=== PATIENT | male | born 1935 | race Caucasian/White ===

== ENCOUNTER 2016-11-06 14:25 | Outpatient (CLI) | payer MEDICARE ==
--- NOTE | 2016-11-06 15:57 | XRAY Report ---
FRONTAL PELVIS: 11/06/2016 CLINICAL INDICATION: Low back pain. FINDINGS: Frontal view of the pelvis demonstrates no evidence of fracture. Mild bilateral hip osteo arthritis is present. The visualized bowel gas pattern is unremarkable. IMPRESSION: HIP OSTEOARTHRITIS. NO EVIDENCE OF PELVIC FRACTURE. JOB #: [id number] EXT JOB #:[id number]
--- NOTE | 2016-11-06 15:58 | XRAY Report ---
THREE-VIEW LUMBAR SPINE: 11/06/2016 CLINICAL INDICATION: Back pain. COMPARISON: MRI 12/06/2007. FINDINGS: AP, lateral, coned-down views of the lumbar spine demonstrate moderate degenerative disc a nd facet disease. There is no evidence of acute fracture or subluxation. Vascular calcifications ar e seen. The bowel gas pattern appears unremarkable. IMPRESSION: MODERATE DEGENERATIVE CHANGES. JOB #: [id number] EXT JOB #:[id number]
== END 2016-11-06 14:26 | disposition home or self-care (01) ==
LOC: LAB 14:25
PROVIDERS: ATTEND Internal Medicine
DX: M51.36 Other intervertebral disc degeneration, lumbar region (principal); M47.896 Other spondylosis, lumbar region; M16.0 Bilateral primary osteoarthritis of hip
CPT/HCPCS: 72100; 72170

== ENCOUNTER 2017-02-24 09:13 | Outpatient (CLI) | payer MEDICARE ==
--- NOTE | 2017-02-24 17:04 | MRI Report ---
EXAM: MRI LUMBAR SPINE WITHOUT CONTRAST EXAM DATE: 02/24/2017 10:21 a.m. CLINICAL HISTORY: Low back pain. COMPARISON: Radiographs 11/06/2016. Prior MRI 12/06/2007. TECHNIQUE: Multiplanar, multisequence T1-weighted and fluid-sensitive sequences of the lumbar spine f rom T12 to S1 without contrast. Other: None. FINDINGS: Spinal Cord: The conus terminates at L2. At the T11-T12 level there is a 1.5 cm long segment of sligh t dilatation of the central canal of the lower spinal cord measuring approximately 1.5 mm in maximum diameter. Prominent midline vessel is seen within the cord below this level. This appearance is uncha nged in retrospect compared to sagittal images on the previous MRI from 2007. Alignment: 4-5 mm posterior subluxation of L4 on L5, unchanged. 2 mm anterior subluxation of L3 on L4 . 2 mm posterior subluxation of L1 on L2. Bone Marrow: Five [id number] lumbar vertebral bodies are assumed. The lower lumbar canal is capa cious. There is some splaying and widening of the spinous processes in the mid and lower lumbar spine . 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 Accessory ossification between the L1 and L2 spinous processes. 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 Diskogenic endplate chris ma at the L4-L5 and L5-S1 levels, more pronounced on the right. Mild diskogenic endplate edema at L2- L3. No fracture. No destructive bone lesion. Disk Levels/Facets: T12-L1: Annular disk bulge with broad-based foraminal protrusions. Mild degenerative facet arthropath y. Mild central canal stenosis. No significant foraminal stenosis. Disk height loss slightly increase d from prior, otherwise unchanged. L1-L2: Slight retrolisthesis, disk dehydration and annular disk bulge minimally progressed from prior with small foraminal protrusions. Mild degenerative facet arthropathy. Mild effacement of the thecal sac. Mild left foraminal stenosis, unchanged. L2-L3: Disk height loss and dehydration progressed from prior. Annular disk bulge and mild degenerati ve facet arthropathy. Broad-based foraminal disk protrusions with foraminal narrowing inferiorly, unc hanged. L3-L4: Disk height loss and dehydration slightly progressed from prior. Annular disk bulge and modera te degenerative facet arthropathy. Foraminal disk protrusions. Moderate left, greater than right, for aminal stenosis slightly progressed on the left from prior. L4-L5: Disk height loss and dehydration with annular disk bulge and mild facet arthropathy not signif icantly changed. Mild right foraminal stenosis unchanged. L5-S1: Disk height loss and dehydration with annular disk bulge and right, greater than left, degener ative facet arthropathy similar to prior. Slight increase in the right foraminal disk protrusion with moderate right foraminal stenosis increased from prior. Musculature: Unremarkable. Other: Bilateral renal cysts are partially visualized. IMPRESSION: 1. 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 2. T12-L1 mild central canal stenosis, unchanged. 3. L3-L4 moderate left, greater than right, foraminal stenosis slightly progressed on the left since prior. 4. L4-L5 mild right foraminal stenosis, unchanged. 5. L5-S1 moderate right foraminal stenosis slightly increased from prior. Comment: The following findings are so common in adults without low back pain that while we report th eir presence, they must be interpreted with caution and in the context of the clinical situation. (Re oksana Guerrier et al, Spine 2001) Prevalence of findings in patients without low back pain: Disk degeneration (any evidence): 92% Disk desiccation/T2 signal loss: 83% Disk height loss: 56% Disk bulge: 64% Disk protrusion: 32% Annular tear/high intensity zone: 38% [facility] Referring Provider Line: [phone] SITE ID: [id number]
== END 2017-02-24 09:14 | disposition home or self-care (01) ==
LOC: DI 09:13
PROVIDERS: ATTEND Internal Medicine
DX: M51.26 Other intervertebral disc displacement, lumbar region (principal); M43.16 Spondylolisthesis, lumbar region; M51.36 Other intervertebral disc degeneration, lumbar region; M47.896 Other spondylosis, lumbar region; M51.27 Other intervertebral disc displacement, lumbosacral region
CPT/HCPCS: 72148

== ENCOUNTER 2017-03-01 14:52 | Outpatient (CLI) | payer MEDICARE ==
[2017-03-01 13:54] LABS: BASOPHILS # (AUTO) 0.1 10^3/uL (0.0-0.1); EOSINOPHILS # (AUTO) 0.3 10^3/uL (0.0-0.7); EOSINOPHILS % (AUTO) 4.5 %; HCT - HEMATOCRIT 35.7 % (42.0-52.0); HGB - HEMOGLOBIN 12.3 g/dL (14.0-18.0); LYMPHOCYTES # (AUTO) 1.7 10^3/uL (1.5-3.5); LYMPHOCYTES % (AUTO) 29.2 %; MEAN CORPUSCULAR HEMOGLOBIN 32.3 pg (27.0-31.0); MEAN CORPUSCULAR HGB CONC 34.6 g/dL (32.0-36.0); MEAN CORPUSCULAR VOLUME 93.4 fL (80.0-94.0); MEAN PLATELET VOLUME 8.2 fL (7.4-11.4); MONOCYTES # (AUTO) 0.7 10^3/uL (0.0-1.0); MONOCYTES % (AUTO) 11.8 %; NEUTROPHILS # (AUTO) 3.1 10^3/uL (1.5-6.6); NEUTROPHILS % (AUTO) 53.5 %; NUCLEATED RED BLOOD CELLS AUTO 0.1 /100WBC; RED BLOOD COUNT 3.82 10^6/uL (4.70-6.10); RED CELL DISTRIBUTION WIDTH 12.9 % (12.0-15.0); UNCORRECTED WHITE BLOOD COUNT 5.9 x10^3/uL; WHITE BLOOD COUNT 5.9 x10^3/uL (4.8-10.8)
[2017-03-01 14:10] LABS: ALBUMIN/GLOBULIN RATIO 1.2 (1.0-2.2); BILIRUBIN,TOTAL 0.6 mg/dL (0.2-1.0); BUN - BLOOD UREA NITROGEN 30 mg/dL (6-20); CALCIUM 8.7 mg/dL (8.5-10.3); CARBON DIOXIDE - CO2 21 mmol/L (21-32); CHLORIDE 109 mmol/L (101-111); CHOL/HDL RATIO 3.9 (<5.0); CHOLESTEROL 143 mg/dL; CREATININE 1.6 mg/dL (0.6-1.2); GFR - MDRD 42 (>89); GLUCOSE 98 mg/dL (70-100); HDL CHOLESTEROL 37 mg/dL; LDL/HDL RATIO 2.3 (<3.6); POTASSIUM 4.4 mmol/L (3.5-5.0); SODIUM 135 mmol/L (135-145); TOTAL PROTEIN 6.7 g/dL (6.7-8.2); TRIGLYCERIDES 104 mg/dL; VLDL CHOLESTEROL 21 mg/dL
== END 2017-03-01 14:53 | disposition home or self-care (01) ==
LOC: LAB.N 14:52
PROVIDERS: ATTEND Internal Medicine
DX: Z79.899 Other long term (current) drug therapy (principal); N18.9 Chronic kidney disease, unspecified; I25.10 Atherosclerotic heart disease of native coronary artery without angina pectoris; I35.0 Nonrheumatic aortic (valve) stenosis; K21.9 Gastro-esophageal reflux disease without esophagitis; E03.9 Hypothyroidism, unspecified; E78.5 Hyperlipidemia, unspecified
CPT/HCPCS: 36415; 80053; 80061; 84443; 85025

== ENCOUNTER 2017-11-27 09:45 | Outpatient (CLI) | payer MEDICARE | END 2017-11-27 09:46 | disposition home or self-care (01) | LOC: SC 09:45 | PROVIDERS: ATTEND Internal Medicine Pulmonary Disease | DX: G47.30 Sleep apnea, unspecified (principal); G47.10 Hypersomnia, unspecified; R06.83 Snoring; G47.8 Other sleep disorders | CPT/HCPCS: 99203; G0463; 99212 ==

== ENCOUNTER 2018-04-04 12:45 | Outpatient (CLI) | payer MEDICARE | END 2018-04-04 12:46 | disposition home or self-care (01) | LOC: SC 12:45 | PROVIDERS: ATTEND Nurse Practitioner Family | DX: G47.33 Obstructive sleep apnea (adult) (pediatric) (principal); G47.61 Periodic limb movement disorder | CPT/HCPCS: 99215; G0463; 99212 ==

== ENCOUNTER 2018-04-25 19:29 | Outpatient (CLI) | payer MEDICARE | END 2018-04-25 19:30 | disposition home or self-care (01) | LOC: SC 19:29 | PROVIDERS: ATTEND Internal Medicine Pulmonary Disease | DX: G47.33 Obstructive sleep apnea (adult) (pediatric) (principal); G47.61 Periodic limb movement disorder | CPT/HCPCS: 95811 ==

== ENCOUNTER 2018-05-28 12:57 | Outpatient (CLI) | payer MEDICARE | END 2018-05-28 12:58 | disposition home or self-care (01) | LOC: SC 12:57 | PROVIDERS: ATTEND Internal Medicine Pulmonary Disease | DX: G47.33 Obstructive sleep apnea (adult) (pediatric) (principal); G47.61 Periodic limb movement disorder | CPT/HCPCS: 99213; G0463; 99212 ==

== ENCOUNTER 2018-11-27 08:00 | Outpatient (CLI) | payer MEDICARE ==
[2018-11-27 13:06] LABS: BASOPHILS # (AUTO) 0.1 10^3/uL (0.0-0.1); BASOPHILS % (AUTO) 0.9 %; EOSINOPHILS # (AUTO) 0.2 10^3/uL (0.0-0.7); EOSINOPHILS % (AUTO) 3.5 %; HGB - HEMOGLOBIN 11.5 g/dL (14.0-18.0); LYMPHOCYTES # (AUTO) 1.6 10^3/uL (1.5-3.5); LYMPHOCYTES % (AUTO) 30.4 %; MEAN CORPUSCULAR HEMOGLOBIN 31.7 pg (27.0-31.0); MEAN CORPUSCULAR HGB CONC 32.9 g/dL (32.0-36.0); MEAN CORPUSCULAR VOLUME 96.4 fL (80.0-94.0); MEAN PLATELET VOLUME 9.9 fL (7.4-11.4); MONOCYTES # (AUTO) 0.7 10^3/uL (0.0-1.0); MONOCYTES % (AUTO) 12.6 %; NEUTROPHILS # (AUTO) 2.8 10^3/uL (1.5-6.6); NEUTROPHILS % (AUTO) 52.2 %; PLT - PLATELET COUNT 265 10^3/uL (130-450); RED BLOOD COUNT 3.63 10^6/uL (4.70-6.10); RED CELL DISTRIBUTION WIDTH 13.2 % (12.0-15.0); WHITE BLOOD COUNT 5.4 x10^3/uL (4.8-10.8)
[2018-11-27 13:16] LABS: ALBUMIN 3.5 g/dL (3.2-5.5); ALBUMIN/GLOBULIN RATIO 1.1 (1.0-2.2); ALKALINE PHOSPHATASE 72 IU/L (42-121); ALT ALANINE AMINOTRANSFERASE 17 IU/L (10-60); AST ASPARTATE AMINOTRANSFERASE 20 IU/L (10-42); BILIRUBIN,TOTAL 0.6 mg/dL (0.2-1.0); BUN - BLOOD UREA NITROGEN 24 mg/dL (6-20); CALCIUM 8.6 mg/dL (8.5-10.3); CARBON DIOXIDE - CO2 24 mmol/L (21-32); CHLORIDE 108 mmol/L (101-111); CHOL/HDL RATIO 3.8 (<5.0); CHOLESTEROL 137 mg/dL; CREATININE 1.7 mg/dL (0.6-1.2); GFR - MDRD 39 (>89); GLUCOSE 101 mg/dL (70-100); HDL CHOLESTEROL 36 mg/dL; LDL CHOLESTEROL,CALCULATED 88 mg/dL; LDL/HDL RATIO 2.4 (<3.6); SODIUM 138 mmol/L (135-145); TOTAL PROTEIN 6.6 g/dL (6.7-8.2); VLDL CHOLESTEROL 13 mg/dL
== END 2018-11-27 23:59 | disposition home or self-care (01) ==
LOC: LAB.N 08:00
PROVIDERS: ATTEND Nurse Practitioner
DX: N18.9 Chronic kidney disease, unspecified (principal); I25.10 Atherosclerotic heart disease of native coronary artery without angina pectoris; E03.9 Hypothyroidism, unspecified; E78.5 Hyperlipidemia, unspecified; K21.9 Gastro-esophageal reflux disease without esophagitis
CPT/HCPCS: 36415; 80053; 80061; 83721; 84443; 85025

== ENCOUNTER 2018-12-06 14:46 | Outpatient (CLI) | payer MEDICARE | END 2018-12-06 23:59 | disposition home or self-care (01) | LOC: LAB.N 14:46 | PROVIDERS: ATTEND Nurse Practitioner | DX: D64.9 Anemia, unspecified (principal) | CPT/HCPCS: 36415; 82607 ==

== ENCOUNTER 2019-04-22 14:45 | Outpatient (CLI) | payer MEDICARE, BC ==
[2019-04-22 15:35] VITALS: BP 150/70
--- NOTE | 2019-04-22 15:35 | SLEEP CARE CONSULTATION ---
Information from patient questionnaire entered by Ceci Andrews. I have reviewed and concur with the information entered by Ceci Andrews. This document represents the service I personally performed and the decisions made by me, Kylee Coles RN, MSN, MANAGER TRANSPORTATION. History of Present Illness Previous diagnosis: Moderate, Obstructive Sleep Apnea-Hypopnea Syndrome AHI: 21.4 Reason for follow up: annual Equipment type: CPAP Equipment obtained from: [employer] Mask style: Nasal (Dreamwear) Mask brand: Respironics Backup mask available: No (keep current mask for spare when replaced. ) Last cushion change: none since set up / no replacement supplies except filters since set up Prior sleep studies: Yes HPI additional information: Patient insurance changed from [employer] to [employer]. Thus he needs to transfer to new medical equipment company. CPAP Compliance Data - Data Reviewed with Patient Average duration of nightly device use: 8h 13m Compliance rate %: 100 Current pressure setting (cmH2O): 5-8 Humidity settin Heated hose settin Average residual AHI: 8.4 Average large leak: 7m 29s Subjective Patient concerns: reports: nasal congestion (slight now due to cold. ), other (Needs filters). denies: aerophagia, mask discomfort, air blowing in eyes, mask leak noise, condensation in mask/hose, dry mouth, nose, throat, epistaxis Observed to snore while using device: No Current pressure setting perceived as: comfortable On therapy, patient: reports: sleeping better, more rested overall. denies: drowsiness while driving Initial [place] Sleepiness Scale score: 7 Current [place] Sleepiness Scale score: 8 Allergies and Home Medications Known drug allergies: Yes (lisinopril, latex, natural rubber) Home medication list reviewed: Yes Allergy and home medication list: Medication Name (generic/name brand) Strength & Dosage Levothyroxine Sodium 88mcg tab one daily Tamsulosin HCL 0.4mg ca one daily Pravachol 80mg tab one daily at bedtime Metoprolol Succinate ER 25mg tab one twice daily Turmeric Cap one daily prn Aspirin DR 81mg tab one daily Cetirizine HCL 10mg tab one daily prn Omeprazole DR 20mg cap one twice daily Review of Systems Review of systems same as previous: Yes Physical Exam Blood Pressure: 150/70 (usually 120/60 at home but higher in office appt. ) Cuff size: long Heart Rate: 55 O2 Saturation: 98 Height: 5 ft 11 in Weight: 191 lb 6.4 oz Body Mass Index: 26.6 BMI Classification: Overweight Impression and Plan 1. Obstructive Sleep Apnea-Hypopnea Syndrome,moderate, with good treatment compliance and elevated residual AHI. On CPAP therapy, the patient has better sleep quality and is more rested overall. I will change his autoCPAP pressure to [id number] to reduce the elevation of his residual AHI. He is to contact me if pressure change uncomfortable. I showed him how to use the ramp if starting pressure too much. For his supply questions, I gave him a copy of the supply replacement schedule and discussed reason for updating. He has had no replacement supplies except disposable filter since set up over a year ago. For patient supply concerns and need to change to new DME for insurance. Patient was notified that another DME can be used. I will have my wellness coordinator inform of DME options. A DWO prescription will then be made. Patient advised to contact this office if further supply problems. Patient's apnea severity and rationale for treatment to reduce apnea, improve sleep quality and reduce cardiovascular and cerebrovascular events was reviewed. I also reviewed the benefit of consistent device use of CPAP for hypertension, gerd. If unable to use CPAP, he is to elevate his head of bed 30-40 degrees to decrease apnea risk. * * Change CPAP pressure to 8-12 cmH2O * transfer of care to new DME * Update all supplies. * Notify me if snoring with mask or feeling that the pressure is too much or too little * Attempt to lose weight * Call this office if any problems using CPAP * Return for follow up in 2 months , or sooner if concerns arise Time Spent with Patient (minutes): 30 I spent 100% of this visit face to face with the patient with greater than 50% of this was spent time counseling the patient and coordination of care.
== END 2019-04-22 14:46 | disposition home or self-care (01) ==
LOC: SC 14:45
PROVIDERS: ATTEND Nurse Practitioner Family
DX: G47.33 Obstructive sleep apnea (adult) (pediatric) (principal)
CPT/HCPCS: 99214; G0463; 99212

== ENCOUNTER 2019-08-21 14:59 | Outpatient (CLI) | payer MEDICARE, BC ==
--- NOTE | 2019-08-21 14:48 | SLEEP CARE CONSULTATION ---
Information from patient questionnaire entered by Fay Martines. I have reviewed and concur with the information entered by Fay Martines. This document represents the service I personally performed and the decisions made by me, Kylee Coles, RN, MSN, PRESS CUTTER. History of Present Illness Service Date and Time: 08/21/2019 1400 Previous diagnosis: Moderate, Obstructive Sleep Apnea-Hypopnea Syndrome AHI: 21.4 (in 2018) Reason for follow up: other (2 month) Equipment type: CPAP Equipment obtained from: [employer] (getting supplies as needed) Mask style: Nasal Backup mask available: No (keep current mask as spare when replaced) Last cushion change: 2 weeks ago Prior sleep studies: Yes Year and Where: 2018 - [facility] Type of Sleep Study: Polysomnography CPAP Compliance Data - Data Reviewed with Patient Average duration of nightly device use: 8.25 Compliance rate %: 100 Current pressure setting (cmH2O): 8-12 Humidity settin Heated hose settin Average residual AHI: 10.4 Central apnea: 0.1 Obstructive apnea: 3.9 Hypopnea: 6.1 Average large leak: 5 min 10 sec Subjective Patient concerns: reports: mask leak noise (noted by spouse as fluttering), nasal congestion (uses Flonase daily and sinus rinse as needed / showers at night ). denies: aerophagia, mask discomfort, air blowing in eyes, condensation in mask/hose, dry mouth, nose, throat, epistaxis Observed to snore while using device: No Current pressure setting perceived as: comfortable On therapy, patient: reports: sleeping better, more rested overall Initial [place] Sleepiness Scale score: 7 (in 2018) Physical Exam Height: 5 ft 11 in Impression and Plan 1. Obstructive Sleep Apnea-Hypopnea Syndrome, moderate, with good treatment compliance and elevated residual AHI. On CPAP therapy, the patient has better sleep quality and is more rested overall. However, recently he is not as refreshed and thinks it is due to seasonal allergies. I explained it could also be due to residual AHI elevation. For elevated AHII will adjust the CPAP pressure to [id number]. He is to contact this office if pressure change uncomfortable. To reduce mask leaks, he is to slightly adjust mask and change mask cushion regularly. Nasal congestion and oral dryness can be reduced with increasing the CPAP humidity. The heated hose can be adjusted higher if condensation with higher humidity setting. Patient is unaware how to complete so I will have his DME Rusty call and verbally instruct step by step. Patient's apnea severity and rationale for treatment to reduce apnea, improve sleep quality and reduce hypertension, cardiovascular and cerebrovascular events was reviewed. * * Changeauto CPAP pressure to 12-15 cmH2O * Notify me if snoring with mask or feeling that the pressure is too much or too little * Implement methods to reduce dryness and nasal congestion. * Call this office if any problems using CPAP * Return for follow up in 1-2 months , or sooner if concerns arise Visit Type: Telehealth Phone (to reduce risk of Covid 19 exposure) Patient Location: Home Other Participants: Spouse/Significant Other Location of Provider: Home Patient agrees and consents to this telehealth visit type: Yes Patient agrees to have their insurance billed: Yes Time Spent with Patient (minutes): 10 + / patient hard of hearing and spouse had to assist in communication Provider Statement: I spent 100% of the Telehealth Phone Call with the patient with greater than 50% spent counseling the patient and coordination of care.
== END 2019-08-21 15:00 | disposition home or self-care (01) ==
LOC: SC 14:59
PROVIDERS: ATTEND Nurse Practitioner Family
DX: G47.33 Obstructive sleep apnea (adult) (pediatric) (principal)

== ENCOUNTER 2019-10-20 11:16 | Outpatient (CLI) | payer MEDICARE, BC ==
[2019-10-20 12:26] VITALS: BP 120/60
--- NOTE | 2019-10-20 12:26 | SLEEP CARE CONSULTATION ---
Information from patient questionnaire entered by Fay Martines. I have reviewed and concur with the information entered by Fay Martines. This document represents the service I personally performed and the decisions made by me, Kylee Coles, RN, MSN, MEDIA ASSISTANT. History of Present Illness Service Date and Time: 10/20/2019 1116 Previous diagnosis: Moderate, Obstructive Sleep Apnea-Hypopnea Syndrome AHI: 21.4 (in 2018) Reason for follow up: other (2 month with pressure change) Equipment type: CPAP Equipment obtained from: [employer] (getting supplies as needed) Mask style: Nasal (Dreamwear) Backup mask available: No (keep current mask when replaced for spare) Last cushion change: a few days ago Prior sleep studies: Yes Year and Where: 2017 - [facility] Type of Sleep Study: Polysomnography CPAP Compliance Data - Data Reviewed with Patient Average duration of nightly device use: 7.95 Compliance rate %: 100 Current pressure setting (cmH2O): 12-15 Humidity settin Heated hose settin Average residual AHI: 11.6 (90% pressure 14.5 /average [id number]. ) Central apnea: 0.5 Obstructive apnea: 4.7 Hypopnea: 6.4 Average large leak: 29 min 30 sec Subjective Patient concerns: reports: aerophagia (a few a times a week and relieved with burping. ), mask leak noise (like a motor boat before recent change in cushion ), nasal congestion (chronic since spring /post nasal drainage/ has seen ENT in past/ uses AYRs saline solution every night before bedtime/ showers in evening ), dry mouth, nose, throat (most days ). denies: mask discomfort, condensation in mask/hose (and waking to reservoir), epistaxis Observed to snore while using device: No Current pressure setting perceived as: too high On therapy, patient: reports: sleeping better, awakening more refreshed, being more awake and alert during the day, more rested overall. denies: drowsiness while driving Initial [place] Sleepiness Scale score: 7 (in 2018) Current [place] Sleepiness Scale score: 4 Allergies and Home Medications Known drug allergies: Yes (see list ) Home medication list reviewed: No ( no changes ) Review of Systems Review of systems same as previous: Yes Physical Exam Blood Pressure: 120/60 Cuff size: regular Heart Rate: 64 O2 Saturation: 97 Height: 5 ft 11 in Weight: 184 lb Body Mass Index: 25.7 BMI Classification: Overweight Impression and Plan 1. Obstructive Sleep Apnea-Hypopnea Syndrome,moderate , with good treatment compliance and good apnea control. On CPAP therapy, the patient has better sleep quality and is more rested overall. The new pressure range increased residual AHI slightly and also caused mild aerophagia which is relieved by burping. Due to aerophagia, I will adjust his autoCPAP lower. I reviewed his titration study in 2019 and last visit note and will adjust autoCPAP pressure to 5-8cmH20. Patient has also lost some weight which may reduce his pressure needs. It is hoped that this will reduce elevated residual as well as aerophagia. He is to call me if continued symptoms or discomfort of pressure. Oral dryness can be reduced by adjusting humidity setting higher or heated hose lower or by adjusting both settings. He is to start by lowering the heated hose to 1 as he is waking to a dry water reservoir. Verbal instructions given on how to change humidity and heated hose settings with rationale explaining why to change. Oral dryness can also be reduced by reducing mask leaks. Patient advised that chronic oral dryness can affect dental health and advised to follow up with dentist. In addition, there are oral dryness products that can be used to reduce dryness such as Biotene products, Dry mouth rinse and Xylomelts. Patient to discuss best option with dentist. For nasal congestion, he can resume Flonase daily 2 sprays each nostril or 1 spray each nostril twice a day after cleaning nose with Ayrs saline nasal spray for better medication adherence. In addition, he may consider a gentle saline flush such as Romy Pot and can discuss with PCP. If nasal symptoms do not resolve, he is to discuss referral back to ENT. Patient's apnea severity and rationale for treatment to reduce apnea, improve sleep quality and reduce cardiovascular and cerebrovascular events was reviewed. I also reviewed the benefit of consistent device use of CPAP for hypertension. * * Changeauto CPAP pressure to 5-8 cmH2O * Resume Flonase - twice a day as instructed. * Implement measures to reduce oral dryness. * Notify me if snoring with mask or feeling that the pressure is too much or too little * Patient will sign a release for copy of this note after completed. * Call this office if any problems using CPAP * Return for follow up in 1-2 months , or sooner if concerns arise Visit Type: In Office Time Spent with Patient (minutes): 45 - hard of hearing / room echos harder for patient to hear Provider Statement: I spent 100% of the Face to Face Visit with the patient with greater than 50% spent counseling the patient and coordination of care.
== END 2019-10-20 11:17 | disposition home or self-care (01) ==
LOC: SC 11:16
PROVIDERS: ATTEND Nurse Practitioner Family
DX: G47.33 Obstructive sleep apnea (adult) (pediatric) (principal); Z46.89 Encounter for fitting and adjustment of other specified devices; R09.82 Postnasal drip; E66.3 Overweight; Z68.25 Body mass index [BMI] 25.0-25.9, adult; H91.90 Unspecified hearing loss, unspecified ear
CPT/HCPCS: 99215; G0463; 99212

== ENCOUNTER 2019-12-18 12:47 | Outpatient (CLI) | payer MEDICARE, BC ==
--- NOTE | 2019-12-18 13:42 | SLEEP CARE CONSULTATION ---
Information from patient questionnaire entered by Fay Martines. I have reviewed and concur with the information entered by Fay Martines. This document represents the service I personally performed and the decisions made by me, Kylee Coles, RN, MSN, VENEER DRIER FEEDER. History of Present Illness Service Date and Time: 12/18/2019 1247 Previous diagnosis: Moderate, Obstructive Sleep Apnea-Hypopnea Syndrome AHI: 21.4 (in 2018) Reason for follow up: other (2 month with pressure change) Equipment type: CPAP Equipment obtained from: [employer] Mask style: Nasal Backup mask available: Yes (old mask ) Last cushion change: 2 weeks Prior sleep studies: Yes Year and Where: 2018 - [facility] Type of Sleep Study: Polysomnography HPI additional information: aerophagia resolved with reduced pressure nasal congestion much better with use of [place] Pot or [place] saline solution before Flonase bid and adjustment of humidity and heated hose. Oral dryness also resolved with Biotene and adjustment of humidity and heated hose. [employer] service has also improved with clarification of insurance. Sleep Study - Results Prior sleep studies: Yes Year and Where: 2018 - [facility] CPAP Compliance Data - Data Reviewed with Patient Average duration of nightly device use: 7.7 Compliance rate %: 100 (60 days) Current pressure setting (cmH2O): 7-10 Humidity settin Heated hose settin Average residual AHI: 6.0 (higher before pressure reduced) Central apnea: 0.1 Obstructive apnea: 1.5 Hypopnea: 4.4 Average large leak: 5 min 21 sec Subjective Patient concerns: reports: nasal congestion (better - managable ). denies: aerophagia, mask discomfort, air blowing in eyes, mask leak noise, condensation in mask/hose, dry mouth, nose, throat, epistaxis, other Observed to snore while using device: No Current pressure setting perceived as: comfortable On therapy, patient: reports: sleeping better, awakening more refreshed, being more awake and alert during the day, more rested overall. denies: drowsiness while driving Initial [place] Sleepiness Scale score: 7 (in 2018) Current [place] Sleepiness Scale score: 7 Allergies and Home Medications Known drug allergies: Yes Home medication list reviewed: No (no changes ) Review of Systems Review of systems same as previous: Yes Physical Exam Blood Pressure: 144/70 Cuff size: regular Heart Rate: 62 O2 Saturation: 98 Height: 5 ft 11 in Weight: 180 lb 12.8 oz Body Mass Index: 25.2 BMI Classification: Overweight Impression and Plan 1. Obstructive Sleep Apnea-Hypopnea Syndrome, moderate, with excellent treatment compliance and mild residual AHI elevation. On CPAP therapy, the patient has better sleep quality and is more rested overall. Mild residual AHI seems to be from prior higher pressure range before current pressure reduction. Patient reports he is very happy with current pressure and CPAP treatment. As noted in HPI, measures taken to reduce aerophagia, nasal congestion and oral dryness have resolved symptoms. Questions answered how to track apnea and report if elevated on his CPAP device. Weight management also discussed and his goal is 175-180 po unds. We discussed how increase of weight especially central obesity increases health risks. His current BMI is 25.2. Patient's apnea severity and rationale for treatment to reduce apnea, improve sleep quality and reduce cardiovascular and cerebrovascular events was reviewed. * Continue auto CPAP pressure at 7-10 cmH2O * Notify me if snoring with mask or feeling that the pressure is too much or too little * Attempt to lose a little weight as discussed. * Call this office if any problems using CPAP * Return for follow up in 1year , or sooner if concerns arise Visit Type: In Office Time Spent with Patient (minutes): 28 Provider Statement: I spent 100% of the Face to Face Visit with the patient with greater than 50% spent counseling the patient and coordination of care.
[2019-12-18 13:43] VITALS: BP 144/70
== END 2019-12-18 12:48 | disposition home or self-care (01) ==
LOC: SC 12:47
PROVIDERS: ATTEND Nurse Practitioner Family
DX: G47.33 Obstructive sleep apnea (adult) (pediatric) (principal); E66.3 Overweight; Z68.25 Body mass index [BMI] 25.0-25.9, adult
CPT/HCPCS: 99214; G0463; 99212

== ENCOUNTER 2020-11-30 13:11 | Outpatient (CLI) | payer MEDICARE, BC ==
--- NOTE | 2020-11-30 13:57 | SLEEP CARE CONSULTATION ---
Information from patient questionnaire entered by Fay Martines. I have reviewed and concur with the information entered by Fay Martines. This document represents the service I personally performed and the decisions made by , Sloane Valladares ARNP. History of Present Illness Service Date and Time: 11/30/2020 1311 Previous diagnosis: Moderate, Obstructive Sleep Apnea-Hypopnea Syndrome AHI: 21.4 (in 2018) Reason for follow up: annual (last seen 11/2019) Equipment type: CPAP [facility] Mask style: Nasal Mask brand: Respironics (Dreamwear) Backup mask available: Yes (old mask) Last cushion change: last Sunday Prior sleep studies: Yes Year and Where: 2018 - [facility] Type of Sleep Study: Polysomnography HPI additional information: LUCI TSE was diagnosed to have moderate, AHI 21.4, obstructive sleep apnea-hypopnea syndrome and returned today for CPAP therapy annual follow-up. CPAP Compliance Data - Data Reviewed with Patient Average duration of nightly device use: 7 hr 41 min Compliance rate %: 97.8 (180 days) Current pressure setting (cmH2O): 7-10 (avg 10.0) Humidity settin Heated hose settin Average residual AHI: 10.5 Central apnea: 0.4 Obstructive apnea: 4.4 Hypopnea: 5.7 Average large leak: 4 min 43 sec Subjective Missed days of use due to: reports: travel (forgot his cord when went on vacation) Patient concerns: reports: other (machine on recall). denies: aerophagia, mask discomfort, air blowing in eyes, mask leak noise, condensation in mask/hose, nasal congestion, dry mouth, nose, throat, epistaxis Current pressure setting perceived as: comfortable On therapy, patient: reports: sleeping better, awakening more refreshed, being more awake and alert during the day, more rested overall. denies: drowsiness while driving Initial [place] Sleepiness Scale score: 7 (in 2018) Current [place] Sleepiness Scale score: 9 Allergies and Home Medications Home medication list reviewed: Yes (no changes) Review of Systems Review of systems same as previous: Yes (no changes) Physical Exam Heart Rate: 61 O2 Saturation: 94 Height: 5 ft 11 in Weight: 185 lb Body Mass Index: 25.7 BMI Classification: Overweight Impression and Plan 1. Obstructive Sleep Apnea-Hypopnea Syndrome, moderate, with good treatment compliance and fair apnea control with mildly elevated residual AHI. On CPAP therapy, the patient has better sleep quality and is more rested overall. The patients pressure will be changed to autoCPAP 8-11 cmH20 for elevation of residual AHI. Patient advised to contact me if pressure change is uncomfortable so that it can be adjusted. Goals for apnea control discussed. He has been having some raspy, tickle throat with a cough for about 6 months. He has had an evaluation by a ENT without any other cause found. Patient concerned that his symptoms might be due to the CPAP device since he learned about the recall. He did call [employer] about the recall and was told his device is affected. Patient informed that they may use an inline CPAP filter that they can obtain online to reduce chance of any particles being inhaled or ingested. We discussed thoroughly the health risks of not using the CPAP versus continuing use with the filter in place. If patient is not able to sleep due to waking up choking, gasping for air or other respiratory distress that they may decide to continue using it until it is either replaced or repaired. Patient voiced understanding and agreement with plan. Due to the symptoms the patient is experiencing he may be having some adverse effects from using his CPAP device. I will write for a replacement device and patient was encouraged in the meantime to elevate his head or do positional therapy to reduce apneas until his device can be either replaced or repaired. He voiced understanding and agreement with this plan of care. Patient's apnea severity and rationale for treatment to reduce apnea, improve sleep quality and reduce cardiovascular and cerebrovascular events was reviewed. I also reviewed the benefit of consistent device use of CPAP for cardiac disease and gastric reflux. Patient was encouraged to lose weight for their overall health and to reduce apneas. * Replacement device for recall device with some upper airway irritation * Change auto CPAP pressure to 8-11 cmH2O * Notify me if snoring with mask or feeling that the pressure is too much or too little * Attempt to lose weight * Call this office if any problems using CPAP * Return for follow up one month after obtaining new device, or sooner if concerns arise Counseling Topics: Spare mask, Weight loss health impact Visit Type: In Office Time Spent with Patient (minutes): 25 Provider Statement: I spent 100% of the Face to Face Visit with the patient with greater than 50% spent counseling the patient and coordination of care.
== END 2020-11-30 13:12 | disposition home or self-care (01) ==
LOC: SC 13:11
PROVIDERS: ATTEND Nurse Practitioner Family
DX: G47.33 Obstructive sleep apnea (adult) (pediatric) (principal)
CPT/HCPCS: 99213; G0463; 99212

== ENCOUNTER 2022-07-04 14:16 | Outpatient (CLI) | payer MEDICARE, BC ==
--- NOTE | 2022-07-04 15:11 | SLEEP CARE CONSULTATION ---
Information from patient questionnaire entered by Eliceo Cedeno. I have reviewed and concur with the information entered by Eliceo Cedeno. This document represents the service I personally performed and the decisions made by me, Sloane Valladares ARNP. History of Present Illness Service Date and Time: 07/04/2022 1416 Previous diagnosis: Moderate, Obstructive Sleep Apnea-Hypopnea Syndrome AHI: 21.4 (in 2018) Reason for follow up: annual (LAST SEEN 06/2021) Accompanied by: Spouse Equipment type: CPAP (TAVAREZ Dreamstation 2; SD CARD NEEDED FOR DOWNLOAD AND PRESSURE CHAMGE) Equipment obtained from: [employer] (getting supplies as needed) Mask style: Nasal Backup mask available: Yes (other masks) Last cushion change: Sunday Prior sleep studies: Yes Year and Where: 2017 - [facility] Type of Sleep Study: Polysomnography HPI additional information: LUCI TSE was diagnosed to have moderate, AHI 21.4, obstructive sleep apnea-hypopnea syndrome and returned today with spouse for CPAP therapy annual follow-up. Sleep Study - Results Type of Sleep Study: Polysomnography Prior sleep studies: Yes Year and Where: 2017 - [facility] CPAP Compliance Data - Data Reviewed with Patient Average duration of nightly device use: 2:20 hours Compliance rate %: 0 (37/90 days used) Current pressure setting (cmH2O): 8-11 (90% avg 10.9) Average residual AHI: 15.9 Subjective Missed days of use due to: reports: illness (had a really bad sore throat), other (bladder issues, up every 45 minutes) Patient concerns: reports: dry mouth, nose, throat (sore, dry throat- since starting infusions for therapy). denies: aerophagia, mask discomfort, air blowing in eyes, mask leak noise, condensation in mask/hose, nasal congestion, epistaxis Observed to snore while using device: No Current pressure setting perceived as: comfortable On therapy, patient: reports: sleeping better, awakening more refreshed, being more awake and alert during the day, more rested overall. denies: drowsiness while driving Initial [place] Sleepiness Scale score: 7 (in 2018) Current [place] Sleepiness Scale score: 8 (07/04/22) Allergies and Home Medications Known drug allergies: Yes (latex, natural rubber, lisinopril) Drug allergies reviewed: Yes Home medication list reviewed: Yes (Atezolizumab infusions for cancer) Allergy and home medication list: Allergies Latex, Natural Rubber Allergy (Unknown, Verified 07/03/22 10:26) unknown lisinopril Allergy (Unknown, Verified 07/03/22 10:26) unknown Review of Systems Review of systems same as previous: No (Cancer in liver and lung; getting imm unotherapy/chemo) Physical Exam Vital signs obtained and entered by: ELICEO Hilliard MA Blood Pressure: 102/50 (LEFT ARM) Cuff size: regular Heart Rate: 66 O2 Saturation: 77 Height: 5 ft 11 in Weight: 173 lb Body Mass Index: 24.1 BMI Classification: Normal Impression and Plan 1. Obstructive Sleep Apnea-Hypopnea Syndrome, moderate, with poor treatment compliance and fair apnea control. On CPAP therapy, the patient has better sleep quality and is more rested overall. He has been getting a very sore and dry thro at since November, after he started on infusions for his cancer. He could not tolerate it and has not used his CPAP in the last 30 days. I checked his machine and his humidifier was turned off. I turned it back on to help reduce oral dryness. The patients pressure will be changed to autoCPAP 8-12 cmH20 for elevation of residual AHI. Patient advised to contact me if pressure change is uncomfortable so that it can be adjusted. Goals for apnea control discussed. Patient's apnea severity and rationale for treatment to reduce apnea, improve sleep quality and reduce cardiovascular and cerebrovascular events was reviewed. I also reviewed the benefit of consistent device use of CPAP for cardiac disease and gastric reflux. * Change auto CPAP pressure to 8-12 cmH2O * Notify me if snoring with mask or feeling that the pressure is too much or too little * Maintain a healthy weight * Call this office if any problems using CPAP * Return for follow up in 1-2 months, or sooner if concerns arise Counseling Topics: Spare mask, Weight control Visit Type: In Office Time Spent with Patient (minutes): 28 Provider Statement: I spent 100% of the Face to Face Visit with the patient with greater than 50% spent counseling the patient and coordination of care.
[2022-07-04 15:28] VITALS: BP 102/50
== END 2022-07-04 14:17 | disposition home or self-care (01) ==
LOC: SC 14:16
PROVIDERS: ATTEND Nurse Practitioner Family
DX: G47.33 Obstructive sleep apnea (adult) (pediatric) (principal)
CPT/HCPCS: 99213; G0463; 99212

== ENCOUNTER 2022-08-18 14:03 | Outpatient (CLI) | payer MEDICARE, BC ==
--- NOTE | 2022-08-18 14:38 | Sleep Patient Instructions ---
Sleep Center Visit Summary - Patient Visit Information Reason for Visit: 1 month followup of CPAP therapy - Patient Instructions Additional Instructions: You were here for follow up of CPAP therapy. You will be continued on CPAP therapy with pressure at 8-12 cmH2O. You should follow up with sleep care in 12 months. You may contact us sooner for any questions or concerns. - Clinic Information Contact: [facility] [address] [place] [address] [email or web address] T: [phone]
--- NOTE | 2022-08-18 14:46 | SLEEP CARE CONSULTATION ---
Information from patient questionnaire entered by Mary Cedeno. I have reviewed and concur with the information entered by Mary Cedeno. This document represents the service I personally performed and the decisions made by me, Sloane Valladares ARNP. History of Present Illness Service Date and Time: 08/18/2022 1403 Previous diagnosis: Moderate, Obstructive Sleep Apnea-Hypopnea Syndrome AHI: 21.4 (in 2018) Reason for follow up: one month (F/U) Equipment type: CPAP (TAVAREZ Dreamstation 2; SD CARD NEEDED FOR DOWNLOAD AND PRESSURE CHAMGE) Equipment obtained from: [employer] (getting supplies as needed) Mask style: Nasal Backup mask available: Yes (has one coming) Last cushion change: 2-3 weeks Prior sleep studies: Yes Year and Where: 2017 - [facility] Type of Sleep Study: Polysomnography HPI additional information: LUCI TSE was diagnosed to have moderate, AHI 21.4, obstructive sleep apnea-hypopnea syndrome and returned today for CPAP therapy one month follow-up. Sleep Study - Results Type of Sleep Study: Polysomnography Prior sleep studies: Yes Year and Where: 2017 - [facility] CPAP Compliance Data - Data Reviewed with Patient Average duration of nightly device use: 8 hours 14 minutes Compliance rate %: 100 (30/30 days used) Current pressure setting (cmH2O): 8-12 Average residual AHI: 3.6 Central apnea: 0.2 Obstructive apnea: 0.6 Hypopnea: 2.8 Average large leak: 8 secs Subjective Patient concerns: reports: dry mouth, nose, throat (dry throat, using Biotene with the humidifier going). denies: aerophagia, mask discomfort, air blowing in eyes, mask leak noise, condensation in mask/hose, nasal congestion, epistaxis Observed to snore while using device: No Current pressure setting perceived as: comfortable On therapy, patient: reports: sleeping better, awakening more refreshed, being more awake and alert during the day, more rested overall. denies: drowsiness while driving Initial [place] Sleepiness Scale score: 7 (in 2018) Current [place] Sleepiness Scale score: 10 (08/18/22) Allergies and Home Medications Known drug allergies: Yes (as listed) Drug allergies reviewed: Yes Home medication list reviewed: Yes (Emma ) Allergy and home medication list: Allergies Latex, Natural Rubber Allergy (Unknown, Verified 08/17/22 10:17) unknown lisinopril Allergy (Unknown, Verified 08/17/22 10:17) unknown Review of Systems Review of systems same as previous: Yes (new med is for kidneys) Physical Exam Vital signs obtained and entered by: MARY Hilliard MA Blood Pressure: 120/42 (LEFT ARM) Cuff size: regular Heart Rate: 64 O2 Saturation: 98 Height: 5 ft 11 in Weight: 183 lb Body Mass Index: 25.5 BMI Classification: Overweight Impression and Plan 1. Obstructive Sleep Apnea-Hypopnea Syndrome, moderate, with good treatment compliance and good apnea control. On CPAP therapy, the patient has better sleep quality and is more rested overall. Patient states since we adjusted his pressure in the humidifier the oral dryness has improved but not completely resolved. He has been using Biotene mouth rinse which is also helping. I showed him how to adjust the humidifier as needed to improve the oral dry nose more as needed. Patient's apnea severity and rationale for treatment to reduce apnea, improve sleep quality and reduce cardiovascular and cerebrovascular events was reviewed. I also reviewed the benefit of consistent device use of CPAP for cardiac disease and gastric reflux. 2. Overweight, unspecified. Currently patients BMI is 25.5. Obesity increases the risk of apnea, CPAP pressure requirements and overall health risks especially cardiovascular and diabetes. Thus patient is advised to lose weight. * Continue auto CPAP pressure at 8-12 cmH2O * Notify me if snoring with mask or feeling that the pressure is too much or too little * Maintain a healthy weight * Call this office if any problems using CPAP * Return for follow up in 1 year, or sooner if concerns arise Counseling Topics: Spare mask, Weight loss health impact, Weight control Visit Type: In Office Time Spent with Patient (minutes): 20 Provider Statement: I spent 100% of the Face to Face Visit with the patient with greater than 50% spent counseling the patient and coordination of care.
[2022-08-18 14:49] VITALS: BP 120/42
== END 2022-08-18 14:04 | disposition home or self-care (01) ==
LOC: SC 14:03
PROVIDERS: ATTEND Nurse Practitioner Family
DX: G47.33 Obstructive sleep apnea (adult) (pediatric) (principal); E66.3 Overweight; Z68.25 Body mass index [BMI] 25.0-25.9, adult
CPT/HCPCS: 99213; G0463; 99212